=== PATIENT | female | born 1960 | race Caucasian/White ===

== ENCOUNTER → 2017-03-24 | Outpatient (CLI) | payer BC ==
[~2017-03-24] MED LIST: ALLOPURINOL100 MG PO; ALPRAZOLAM0.25 MG PO; ASPIRIN 32325 MG/TAB PO; CARDI-OMEGA1000 MG PO; GLUCOPHAGE500 MG/TAB PO; HCTZ 25MG TAB25 MG PO; HYDROCHLOROTHIA25 MG PO; LISINOPRIL10 MG PO; LOPRESSOR 225 MG/TAB PO; METOPROLOL25 MG PO; PRINIVIL40 MG PO; PRISTIQ 50 MG T50 MG PO; PRISTIQ50 M1 PO; VESICARE10 MG PO
== END ==
LOC: MC.RAD 03-15 14:00
DX: Z12.31 Encounter for screening mammogram for malignant neoplasm of breast (principal)

== ENCOUNTER → 2017-11-07 | Outpatient (CLI) | payer BC | LOC: COL.RAD 09:27 | DX: M47.816 Spondylosis without myelopathy or radiculopathy, lumbar region (principal); M48.061 Spinal stenosis, lumbar region without neurogenic claudication; M99.73 Connective tissue and disc stenosis of intervertebral foramina of lumbar region ==